=== PATIENT | female | born 1960 | race Caucasian/White ===

== ENCOUNTER 2017-02-18 13:16 | Emergency (ER) | payer MEDICARE ==
[2017-02-18 14:56] LABS: RED BLOOD COUNT 4.51 M/UL (4.00-5.10); WHITE BLOOD COUNT 14.8 K/UL (4.5-11.0)
[2017-02-18 15:11] LABS: BUN/CREATININE RATIO 14 (0-10)
== END 2017-02-18 19:40 | disposition home or self-care (01) ==
LOC: ER1 13:16
PROVIDERS: Physician Assistant
DX: M79.605 Pain in left leg (principal); M79.604 Pain in right leg; L08.9 Local infection of the skin and subcutaneous tissue, unspecified; J44.1 Chronic obstructive pulmonary disease with (acute) exacerbation; I10 Essential (primary) hypertension; M79.7 Fibromyalgia; G89.4 Chronic pain syndrome; F17.210 Nicotine dependence, cigarettes, uncomplicated; Z88.2 Allergy status to sulfonamides; Z79.899 Other long term (current) drug therapy
CPT/HCPCS: 36415; 51701; 71010; 80053; 81001; 82550; 82553; 83605; 83690; 83874; 84484; 85025; 87040; 87086; 93005; 96374; 99285; J2930

== ENCOUNTER → 2017-03-31 | Outpatient (CLI) | payer MEDICARE | LOC: KOH-I 15:02 | DX: M79.601 Pain in right arm (principal); M25.511 Pain in right shoulder | CPT/HCPCS: 73030; 73060 ==